=== PATIENT | female | born 1945 | race Caucasian/White ===

== ENCOUNTER 2022-07-07 13:26 | Inpatient (IN) ==
[2022-07-07] MEDS ORDERED: Ondansetron ODT 4 MG TAB.RAPDIS SL PRN (15:47)
[2022-07-07] MEDS ORDERED: Naloxone 0.4 MG/ML INJ IVP PRN (15:47)
[2022-07-07] MEDS ORDERED: Piperacillin/Tazobactam 3.375 GM in 0.9 % Sodium Chloride Mini Bag 100 ML IVPB SCH (16:00)
[2022-07-07] MEDS ORDERED: D5% in Water 1,000 ML IVC PRN (17:04)
[2022-07-07] MEDS ORDERED: Dextrose Gel 15 GM/37.5 ML TUBE PO PRN ×2 (17:04)
[2022-07-07] MEDS: lisinopriL 5 MG TABLET PO SCH (17:31)
[2022-07-07] MEDS: Metoprolol XL (24 HR) Succ 25 MG TAB.ER.24H PO SCH (17:31)
[2022-07-07 17:49] LABS: Magnesium 1.9 mg/dL (1.6-2.6); Phosphorous 3.5 mg/dL (2.7-4.5)
[2022-07-07 17:55] LABS: Procalcitonin 0.65 ng/mL (0.00-0.15)
[2022-07-07] MEDS: *HR* Metoprolol 5 MG/5 ML VIAL IVP PRN (17:59)
[2022-07-07] MEDS ORDERED: *HR* Metoprolol 5 MG/5 ML VIAL IVP SCH (18:00)
[2022-07-07 18:04] LABS: Thyroid Stimulating Hormone 6.43 mcIU/mL (0.340-5.600)
[2022-07-07] MEDS: Ipratropium/Albuterol Neb 3 ML IH SCH ×3 (18:23→23:33)
[2022-07-07] MEDS: Insulin LISPRO 300 UNITS/3 ML VIAL SUBQ SCH (20:16)
[2022-07-07] MEDS ORDERED: *HR* Metoprolol 5 MG/5 ML VIAL IVP ONE (21:35)
[2022-07-07] MEDS: *HR* Heparin 5,000 UNIT/ML VIAL SQ SCH (21:46)
[2022-07-08] MEDS: Azithromycin 500 MG in 0.9 % Sodium Chloride 250 ML IVPB SCH (01:05)
[2022-07-08] MEDS: Ipratropium/Albuterol Neb 3 ML IH SCH ×6 (04:32→23:01)
[2022-07-08 04:47] LABS: Basophils # 0.1 K/mcL (0.0-0.2); Basophils % 0.5 %; Eosinophils # 0.1 K/mcL (0.0-0.6); Eosinophils % 0.3 %; Hematocrit 37.8 % (35.3-44.9); Hemoglobin 11.5 g/dL (11.5-15.4); Lymphocytes # 1.2 K/mcL (0.6-4.6); Lymphocytes % 7.5 %; Mean Corpuscular HGB Conc 30.4 g/dL (31.6-35.5); Mean Corpuscular Volume 105.3 fL (83.0-100.0); Mean Platelet Volume 10.1 fL (9.4-12.4); Monocytes # 1.3 K/mcL (0.0-1.3); Monocytes % 8.6 %; Neutrophils # 12.7 K/mcL (1.6-8.9); Platelet Count 245 K/mcL (140-400); Red Blood Count 3.59 M/mcL (3.82-4.97); Red Cell Distribution Width 12.4 % (11.5-14.5); Segmented Neutrophils % 82.1 %; White Blood Count 15.4 K/mcL (4.3-11.1)
[2022-07-08 05:12] LABS: Calcium 9.3 mg/dL (8.6-10.3); Magnesium 2.1 mg/dL (1.6-2.6); Phosphorous 4.6 mg/dL (2.7-4.5); Potassium 5.3 mEq/L (3.5-5.1)
[2022-07-08 05:28] LABS: Estimated Average Glucose 111 mg/dl; Hemoglobin A1C 5.5 %
[2022-07-08] MEDS: *HR* Heparin 5,000 UNIT/ML VIAL SQ SCH ×3 (05:37→21:24)
[2022-07-08] MEDS: Insulin LISPRO 300 UNITS/3 ML VIAL SUBQ SCH ×4 (08:24→20:15)
[2022-07-08] MEDS: lisinopriL 5 MG TABLET PO SCH (08:25)
[2022-07-08] MEDS: cefTRIAXone 2,000 MG in 0.9 % Sodium Chloride 20 ML IVPB SCH (08:25)
[2022-07-08] MEDS: Metoprolol XL (24 HR) Succ 25 MG TAB.ER.24H PO SCH (08:25)
[2022-07-08] MEDS ORDERED: cefTRIAXone 1,000 MG in 0.9 % Sodium Chloride 10 ML IVPB SCH (09:00)
[2022-07-08 22:26] LABS: Calcium 9.5 mg/dL (8.6-10.3); Phosphorous 3.7 mg/dL (2.7-4.5); Potassium 4.9 mEq/L (3.5-5.1)
[2022-07-08 22:29] LABS: Troponin I 0.06 ng/mL (< 0.04)
[2022-07-09] MEDS: Azithromycin 500 MG in 0.9 % Sodium Chloride 250 ML IVPB SCH (00:12)
[2022-07-09] MEDS: Melatonin 3 MG TABLET PO PRN ×2 (01:21→20:03)
[2022-07-09] MEDS: Ipratropium/Albuterol Neb 3 ML IH SCH ×6 (04:06→20:15)
[2022-07-09 04:20] LABS: Basophils # 0.1 K/mcL (0.0-0.2); Basophils % 0.7 %; Eosinophils % 0.2 %; Hematocrit 35.6 % (35.3-44.9); Hemoglobin 10.7 g/dL (11.5-15.4); Immature Granulocytes % 2.5 % (0-4); Lymphocytes # 0.8 K/mcL (0.6-4.6); Lymphocytes % 6.9 %; Mean Corpuscular HGB Conc 30.1 g/dL (31.6-35.5); Mean Corpuscular Hemoglobin 31.8 pg (28.0-33.3); Mean Corpuscular Volume 105.6 fL (83.0-100.0); Mean Platelet Volume 9.6 fL (9.4-12.4); Monocytes # 1.1 K/mcL (0.0-1.3); Monocytes % 8.8 %; Neutrophils # 9.9 K/mcL (1.6-8.9); Platelet Count 279 K/mcL (140-400); Red Blood Count 3.37 M/mcL (3.82-4.97); Red Cell Distribution Width 12.4 % (11.5-14.5); Segmented Neutrophils % 80.9 %; White Blood Count 12.2 K/mcL (4.3-11.1)
[2022-07-09 04:39] LABS: Calcium 9.3 mg/dL (8.6-10.3); Potassium 5.4 mEq/L (3.5-5.1)
[2022-07-09 04:49] LABS: Troponin I 0.09 ng/mL (< 0.04)
[2022-07-09] MEDS ORDERED: Calcium Gluconate 1gm/50mL 1 GM/50 ML BAG IVPB ONE (05:00)
[2022-07-09] MEDS ORDERED: *HR* Dextrose 50 % in Water (Syg) 50 ML SYRINGE IVP ONE (05:00)
[2022-07-09] MEDS ORDERED: Insulin Human Regular 10 UNIT in 0.9 % Sodium Chloride 10 ML IV ONE (05:00)
[2022-07-09] MEDS: *HR* Heparin 5,000 UNIT/ML VIAL SQ SCH ×3 (06:22→22:07)
[2022-07-09] MEDS: Metoprolol XL (24 HR) Succ 25 MG TAB.ER.24H PO SCH ×2 (08:27→08:45)
[2022-07-09] MEDS: Insulin LISPRO 300 UNITS/3 ML VIAL SUBQ SCH ×4 (08:34→22:13)
[2022-07-09] MEDS: cefTRIAXone 2,000 MG in 0.9 % Sodium Chloride 20 ML IVPB SCH (08:36)
[2022-07-09 10:26] LABS: ABG Base Excess 4 mEq/L (-2 to 3); ABG HCO3 37 mEq/L (21-27); ABG Oxygen Saturation 88 % (95-98); ABG PCO2 110 mmHg (35-45); ABG PH 7.13 pH Units (7.32-7.45); ABG PO2 77 mmHg (85-104); ABG TCO2 40 mEq/L (20-26)
[2022-07-09] MEDS: *HR* Dextrose 50 % in Water (Syg) 50 ML SYRINGE IVP PRN (12:14)
[2022-07-09] MEDS: Venlafaxine XR (24 HR) 150 MG CAP.ER.24H PO SCH (12:19)
[2022-07-09] MEDS: Magnesium Oxide 400 MG TABLET PO SCH ×2 (12:19→20:03)
[2022-07-09] MEDS: Carbidopa/Levodopa ER 50/200 TABLET PO SCH ×3 (12:19→20:03)
[2022-07-09] MEDS: Cyanocobalamin (B-12) 1,000 MCG TABLET PO SCH (12:19)
[2022-07-09] MEDS ORDERED: Furosemide 40 MG in 0.9 % Sodium Chloride 50 ML IVP ONE (14:00)
[2022-07-09] MEDS ORDERED: Furosemide 40 MG/4 ML VIAL IVP ONE (14:06)
[2022-07-09 14:09] LABS: ABG Base Excess 6 mEq/L (-2 to 3); ABG HCO3 36 mEq/L (21-27); ABG Oxygen Saturation 94 % (95-98); ABG PCO2 84 mmHg (35-45); ABG PH 7.24 pH Units (7.32-7.45); ABG PO2 89 mmHg (85-104); ABG TCO2 38 mEq/L (20-26); Blood Gas VT 450 cc
[2022-07-09] MEDS ORDERED: *HR* Heparin 5,000 UNIT/ML VIAL ONE (14:30)
[2022-07-09] MEDS ORDERED: Furosemide 40 MG/4 ML VIAL ONE (14:38)
[2022-07-09] MEDS ORDERED: Erythromycin OPTH Oint LEFT EYE ONE (17:09)
[2022-07-09] MEDS: *HR* Metoprolol 5 MG/5 ML VIAL IVP PRN (18:24)
[2022-07-09] MEDS: Sennosides/Docusate Sodium TABLET PO SCH (20:04)
[2022-07-09] MEDS: MOM Conc 10 ML UD.LIQ PO SCH (20:04)
[2022-07-09] MEDS ORDERED: hydrOXYzine pamoate 25 MG CAPSULE PO SCH (22:00)
[2022-07-09] MEDS ORDERED: Albumin 25% 25gram/100mL 25 GM/100 ML IV.SOLN IVPB ONE (22:07)
[2022-07-09] MEDS: Levalbuterol Neb 1.25 MG/3 ML IH SCH (22:39)
[2022-07-10] MEDS: Azithromycin 500 MG in 0.9 % Sodium Chloride 250 ML IVPB SCH (01:52)
[2022-07-10 03:40] LABS: Basophils # 0.1 K/mcL (0.0-0.2); Basophils % 0.6 %; Eosinophils % 0.5 %; Hematocrit 32.5 % (35.3-44.9); Immature Granulocytes % 1.6 % (0-4); Lymphocytes % 11.4 %; Mean Corpuscular HGB Conc 30.8 g/dL (31.6-35.5); Mean Corpuscular Hemoglobin 32.4 pg (28.0-33.3); Mean Corpuscular Volume 105.2 fL (83.0-100.0); Mean Platelet Volume 9.5 fL (9.4-12.4); Monocytes # 0.6 K/mcL (0.0-1.3); Neutrophils # 6.7 K/mcL (1.6-8.9); Platelet Count 217 K/mcL (140-400); Red Blood Count 3.09 M/mcL (3.82-4.97); Red Cell Distribution Width 12.4 % (11.5-14.5); Segmented Neutrophils % 78.9 %; White Blood Count 8.5 K/mcL (4.3-11.1)
[2022-07-10] MEDS: Levalbuterol Neb 1.25 MG/3 ML IH SCH ×4 (03:51→22:52)
[2022-07-10 03:59] LABS: Calcium 9.4 mg/dL (8.6-10.3); Potassium 4.5 mEq/L (3.5-5.1)
[2022-07-10 04:00] LABS: Calcium 9.5 mg/dL (8.6-10.3); Potassium 4.6 mEq/L (3.5-5.1)
[2022-07-10 04:20] LABS: ABG Base Excess 8 mEq/L (-2 to 3); ABG HCO3 35 mEq/L (21-27); ABG Oxygen Saturation 97 % (95-98); ABG PCO2 67 mmHg (35-45); ABG PH 7.33 pH Units (7.32-7.45); ABG PO2 103 mmHg (85-104); ABG TCO2 37 mEq/L (20-26); Blood Gas VT 450 cc
[2022-07-10] MEDS: *HR* Heparin 5,000 UNIT/ML VIAL SQ SCH ×3 (05:19→20:48)
[2022-07-10] MEDS: *HR* Metoprolol 5 MG/5 ML VIAL IVP PRN ×2 (05:19→11:40)
[2022-07-10] MEDS: Insulin LISPRO 300 UNITS/3 ML VIAL SUBQ SCH ×4 (07:57→21:10)
[2022-07-10] MEDS: cefTRIAXone 2,000 MG in 0.9 % Sodium Chloride 20 ML IVPB SCH (08:09)
[2022-07-10] MEDS: Magnesium Oxide 400 MG TABLET PO SCH ×2 (08:10→20:48)
[2022-07-10] MEDS: Carbidopa/Levodopa ER 50/200 TABLET PO SCH ×3 (08:10→20:48)
[2022-07-10] MEDS: Venlafaxine XR (24 HR) 150 MG CAP.ER.24H PO SCH (08:10)
[2022-07-10] MEDS: Metoprolol XL (24 HR) Succ 25 MG TAB.ER.24H PO SCH (08:10)
[2022-07-10] MEDS: Sennosides/Docusate Sodium TABLET PO SCH ×2 (08:10→20:48)
[2022-07-10] MEDS: MOM Conc 10 ML UD.LIQ PO SCH (08:10)
[2022-07-10] MEDS: Cyanocobalamin (B-12) 1,000 MCG TABLET PO SCH (08:10)
[2022-07-10] MEDS: Piperacillin/Tazobactam 3.375 GM in 0.9 % Sodium Chloride Mini Bag 100 ML IVPB SCH (14:42)
[2022-07-10] MEDS: hydrOXYzine pamoate 25 MG CAPSULE PO SCH ×2 (15:13→20:48)
[2022-07-10 16:59] LABS: ABG Base Excess 8 mEq/L (-2 to 3); ABG HCO3 36 mEq/L (21-27); ABG Oxygen Saturation 95 % (95-98); ABG PCO2 69 mmHg (35-45); ABG PH 7.32 pH Units (7.32-7.45); ABG PO2 86 mmHg (85-104); ABG TCO2 38 mEq/L (20-26); Blood Gas Modality NIV; Blood Gas VT 450 cc
[2022-07-10] MEDS: DilTIAZem 50 MG/50 ML IV.SOLN IVC SCH ×2 (18:30→21:32)
[2022-07-10] MEDS: Melatonin 3 MG TABLET PO PRN (20:48)
[2022-07-11] MEDS: *HR* Metoprolol 5 MG/5 ML VIAL IVP PRN (00:46)
[2022-07-11] MEDS: Piperacillin/Tazobactam 3.375 GM in 0.9 % Sodium Chloride Mini Bag 100 ML IVPB SCH ×3 (00:49→15:47)
[2022-07-11] MEDS: DilTIAZem 50 MG/50 ML IV.SOLN IVC SCH ×5 (00:51→21:29)
[2022-07-11] MEDS: Azithromycin 500 MG in 0.9 % Sodium Chloride 250 ML IVPB SCH (01:41)
[2022-07-11] MEDS: Levalbuterol Neb 1.25 MG/3 ML IH SCH ×4 (04:41→22:38)
[2022-07-11 05:11] LABS: Basophils # 0.1 K/mcL (0.0-0.2); Basophils % 0.6 %; Eosinophils # 0.3 K/mcL (0.0-0.6); Eosinophils % 3.1 %; Hematocrit 34.2 % (35.3-44.9); Hemoglobin 10.2 g/dL (11.5-15.4); Immature Granulocytes % 1.7 % (0-4); Lymphocytes % 12.3 %; Mean Corpuscular HGB Conc 29.8 g/dL (31.6-35.5); Mean Corpuscular Hemoglobin 31.6 pg (28.0-33.3); Mean Corpuscular Volume 105.9 fL (83.0-100.0); Mean Platelet Volume 9.6 fL (9.4-12.4); Monocytes # 0.7 K/mcL (0.0-1.3); Platelet Count 241 K/mcL (140-400); Red Blood Count 3.23 M/mcL (3.82-4.97); Red Cell Distribution Width 12.2 % (11.5-14.5); Segmented Neutrophils % 73.3 %; White Blood Count 8.1 K/mcL (4.3-11.1)
[2022-07-11 05:25] LABS: Calcium 9.4 mg/dL (8.6-10.3); Potassium 4.3 mEq/L (3.5-5.1)
[2022-07-11] MEDS: *HR* Heparin 5,000 UNIT/ML VIAL SQ SCH ×3 (05:29→21:10)
[2022-07-11] MEDS: hydrOXYzine pamoate 25 MG CAPSULE PO SCH ×3 (07:49→21:10)
[2022-07-11] MEDS: Cyanocobalamin (B-12) 1,000 MCG TABLET PO SCH (07:50)
[2022-07-11] MEDS: Magnesium Oxide 400 MG TABLET PO SCH ×2 (07:50→21:09)
[2022-07-11] MEDS: lisinopriL 5 MG TABLET PO SCH (07:50)
[2022-07-11] MEDS: Metoprolol XL (24 HR) Succ 25 MG TAB.ER.24H PO SCH (07:50)
[2022-07-11] MEDS: Venlafaxine XR (24 HR) 150 MG CAP.ER.24H PO SCH (07:50)
[2022-07-11] MEDS: Carbidopa/Levodopa ER 50/200 TABLET PO SCH ×3 (07:51→21:09)
[2022-07-11] MEDS: Insulin LISPRO 300 UNITS/3 ML VIAL SUBQ SCH ×4 (07:52→22:30)
[2022-07-11] MEDS: Sennosides/Docusate Sodium TABLET PO SCH ×2 (07:52→21:09)
[2022-07-11] MEDS: MOM Conc 10 ML UD.LIQ PO SCH (07:52)
[2022-07-12] MEDS: Piperacillin/Tazobactam 3.375 GM in 0.9 % Sodium Chloride Mini Bag 100 ML IVPB SCH ×3 (00:36→14:33)
[2022-07-12] MEDS: DilTIAZem 50 MG/50 ML IV.SOLN IVC SCH ×3 (01:26→10:36)
[2022-07-12] MEDS: Levalbuterol Neb 1.25 MG/3 ML IH SCH ×4 (04:17→22:48)
[2022-07-12] MEDS: *HR* Heparin 5,000 UNIT/ML VIAL SQ SCH ×3 (06:07→20:19)
[2022-07-12 06:11] LABS: Calcium 9.5 mg/dL (8.6-10.3); Potassium 4.6 mEq/L (3.5-5.1)
[2022-07-12] MEDS: Carbidopa/Levodopa ER 50/200 TABLET PO SCH ×3 (07:38→20:19)
[2022-07-12] MEDS: lisinopriL 5 MG TABLET PO SCH (07:38)
[2022-07-12] MEDS: *HR* Metoprolol 5 MG/5 ML VIAL IVP PRN (07:38)
[2022-07-12] MEDS: Metoprolol XL (24 HR) Succ 25 MG TAB.ER.24H PO SCH (07:38)
[2022-07-12] MEDS: Cyanocobalamin (B-12) 1,000 MCG TABLET PO SCH (07:39)
[2022-07-12] MEDS: Magnesium Oxide 400 MG TABLET PO SCH ×2 (07:39→20:20)
[2022-07-12] MEDS: Sennosides/Docusate Sodium TABLET PO SCH ×2 (07:39→20:19)
[2022-07-12] MEDS: hydrOXYzine pamoate 25 MG CAPSULE PO SCH ×3 (07:39→20:19)
[2022-07-12] MEDS: MOM Conc 10 ML UD.LIQ PO SCH (07:40)
[2022-07-12] MEDS: Venlafaxine XR (24 HR) 150 MG CAP.ER.24H PO SCH (07:40)
[2022-07-12] MEDS: Insulin LISPRO 300 UNITS/3 ML VIAL SUBQ SCH ×4 (07:52→20:19)
[2022-07-12] MEDS: Azithromycin 250 MG TABLET PO SCH (07:52)
[2022-07-12 09:24] LABS: Basophils # 0.1 K/mcL (0.0-0.2); Basophils % 0.6 %; Eosinophils # 0.3 K/mcL (0.0-0.6); Eosinophils % 3.2 %; Hematocrit 32.8 % (35.3-44.9); Hemoglobin 9.8 g/dL (11.5-15.4); Immature Granulocytes % 2.1 % (0-4); Lymphocytes # 1.1 K/mcL (0.6-4.6); Lymphocytes % 13.2 %; Mean Corpuscular HGB Conc 29.9 g/dL (31.6-35.5); Mean Corpuscular Hemoglobin 31.8 pg (28.0-33.3); Mean Corpuscular Volume 106.5 fL (83.0-100.0); Mean Platelet Volume 9.6 fL (9.4-12.4); Monocytes # 0.6 K/mcL (0.0-1.3); Monocytes % 6.9 %; Neutrophils # 6.2 K/mcL (1.6-8.9); Platelet Count 264 K/mcL (140-400); Red Blood Count 3.08 M/mcL (3.82-4.97); Red Cell Distribution Width 12.4 % (11.5-14.5); White Blood Count 8.4 K/mcL (4.3-11.1)
[2022-07-12] MEDS: Melatonin 3 MG TABLET PO PRN (20:20)
[2022-07-13] MEDS: Piperacillin/Tazobactam 3.375 GM in 0.9 % Sodium Chloride Mini Bag 100 ML IVPB SCH ×3 (00:09→16:08)
[2022-07-13 03:47] LABS: Basophils # 0.1 K/mcL (0.0-0.2); Basophils % 0.7 %; Eosinophils # 0.3 K/mcL (0.0-0.6); Eosinophils % 4.1 %; Hematocrit 31.2 % (35.3-44.9); Hemoglobin 9.3 g/dL (11.5-15.4); Immature Granulocytes % 2.5 % (0-4); Lymphocytes # 1.1 K/mcL (0.6-4.6); Mean Corpuscular HGB Conc 29.8 g/dL (31.6-35.5); Mean Corpuscular Hemoglobin 32.2 pg (28.0-33.3); Mean Platelet Volume 9.8 fL (9.4-12.4); Monocytes # 0.4 K/mcL (0.0-1.3); Monocytes % 6.5 %; Neutrophils # 4.7 K/mcL (1.6-8.9); Platelet Count 242 K/mcL (140-400); Red Blood Count 2.89 M/mcL (3.82-4.97); Red Cell Distribution Width 12.5 % (11.5-14.5); Segmented Neutrophils % 70.2 %; White Blood Count 6.8 K/mcL (4.3-11.1)
[2022-07-13 04:12] LABS: Calcium 9.2 mg/dL (8.6-10.3); Potassium 4.7 mEq/L (3.5-5.1)
[2022-07-13] MEDS: Levalbuterol Neb 1.25 MG/3 ML IH SCH ×4 (04:13→21:55)
[2022-07-13] MEDS: *HR* Heparin 5,000 UNIT/ML VIAL SQ SCH ×3 (05:43→20:42)
[2022-07-13] MEDS: Insulin LISPRO 300 UNITS/3 ML VIAL SUBQ SCH ×4 (08:07→21:00)
[2022-07-13] MEDS: DilTIAZem 50 MG/50 ML IV.SOLN IVC SCH (08:18)
[2022-07-13] MEDS: Azithromycin 250 MG TABLET PO SCH (08:19)
[2022-07-13] MEDS: Cyanocobalamin (B-12) 1,000 MCG TABLET PO SCH (08:20)
[2022-07-13] MEDS: Venlafaxine XR (24 HR) 150 MG CAP.ER.24H PO SCH (08:20)
[2022-07-13] MEDS: hydrOXYzine pamoate 25 MG CAPSULE PO SCH ×3 (08:20→20:42)
[2022-07-13] MEDS: lisinopriL 5 MG TABLET PO SCH (08:20)
[2022-07-13] MEDS: Metoprolol XL (24 HR) Succ 25 MG TAB.ER.24H PO SCH ×2 (08:20→20:42)
[2022-07-13] MEDS: *HR* Metoprolol 5 MG/5 ML VIAL IVP PRN ×2 (08:21→14:34)
[2022-07-13] MEDS: Magnesium Oxide 400 MG TABLET PO SCH ×2 (08:21→20:42)
[2022-07-13] MEDS: MOM Conc 10 ML UD.LIQ PO SCH (08:22)
[2022-07-13] MEDS: Carbidopa/Levodopa ER 50/200 TABLET PO SCH ×3 (08:22→20:42)
[2022-07-13] MEDS: Sennosides/Docusate Sodium TABLET PO SCH ×2 (08:22→21:01)
[2022-07-13] MEDS ORDERED: Acetaminophen IV 500 MG/50 ML BAG IVPB ONE (10:19)
[2022-07-13] MEDS: *HR* LORazepam Oral Conc 2 MG/ML PO PRN ×2 (13:18→23:36)
[2022-07-13] MEDS ORDERED: Vancomycin 1,250 MG/262.5 ML IV.SOLN IVPB SCH (15:00)
[2022-07-13] MEDS: Melatonin 3 MG TABLET PO PRN (20:42)
[2022-07-14] MEDS: Levalbuterol Neb 1.25 MG/3 ML IH SCH ×4 (03:46→21:58)
[2022-07-14] MEDS: Piperacillin/Tazobactam 3.375 GM in 0.9 % Sodium Chloride Mini Bag 100 ML IVPB SCH ×3 (04:12→21:34)
[2022-07-14] MEDS: *HR* Heparin 5,000 UNIT/ML VIAL SQ SCH ×3 (05:35→21:36)
[2022-07-14] MEDS: Cyanocobalamin (B-12) 1,000 MCG TABLET PO SCH (08:57)
[2022-07-14] MEDS: Insulin LISPRO 300 UNITS/3 ML VIAL SUBQ SCH ×3 (08:57→21:39)
[2022-07-14] MEDS: Venlafaxine XR (24 HR) 150 MG CAP.ER.24H PO SCH (08:57)
[2022-07-14] MEDS: Sennosides/Docusate Sodium TABLET PO SCH ×2 (08:57→21:37)
[2022-07-14] MEDS: hydrOXYzine pamoate 25 MG CAPSULE PO SCH ×3 (08:58→21:51)
[2022-07-14] MEDS: lisinopriL 5 MG TABLET PO SCH (08:58)
[2022-07-14] MEDS: Magnesium Oxide 400 MG TABLET PO SCH ×2 (08:58→21:37)
[2022-07-14] MEDS: Azithromycin 250 MG TABLET PO SCH (08:59)
[2022-07-14] MEDS: Metoprolol XL (24 HR) Succ 25 MG TAB.ER.24H PO SCH ×2 (09:00→21:37)
[2022-07-14 10:47] LABS: Basophils # 0.1 K/mcL (0.0-0.2); Basophils % 0.8 %; Eosinophils # 0.2 K/mcL (0.0-0.6); Eosinophils % 1.7 %; Hematocrit 35.9 % (35.3-44.9); Hemoglobin 10.6 g/dL (11.5-15.4); Immature Granulocytes % 1.8 % (0-4); Lymphocytes # 0.8 K/mcL (0.6-4.6); Lymphocytes % 8.4 %; Mean Corpuscular HGB Conc 29.5 g/dL (31.6-35.5); Mean Corpuscular Hemoglobin 32.1 pg (28.0-33.3); Mean Corpuscular Volume 108.8 fL (83.0-100.0); Mean Platelet Volume 9.4 fL (9.4-12.4); Monocytes # 0.5 K/mcL (0.0-1.3); Neutrophils # 7.5 K/mcL (1.6-8.9); Platelet Count 316 K/mcL (140-400); Red Cell Distribution Width 12.4 % (11.5-14.5); Segmented Neutrophils % 82.3 %; White Blood Count 9.1 K/mcL (4.3-11.1)
[2022-07-14 11:17] LABS: Calcium 9.8 mg/dL (8.6-10.3); Potassium 5.2 mEq/L (3.5-5.1)
[2022-07-14] MEDS ORDERED: Vancomycin 1,250 MG/262.5 ML IV.SOLN IVPB SCH (12:00)
[2022-07-14] MEDS: MOM Conc 10 ML UD.LIQ PO SCH (12:20)
[2022-07-14] MEDS: Carbidopa/Levodopa ER 50/200 TABLET PO SCH ×3 (12:47→21:51)
[2022-07-14] MEDS: Melatonin 3 MG TABLET PO PRN (21:37)
[2022-07-15] MEDS: Levalbuterol Neb 1.25 MG/3 ML IH SCH ×3 (04:41→16:21)
[2022-07-15] MEDS: Piperacillin/Tazobactam 3.375 GM in 0.9 % Sodium Chloride Mini Bag 100 ML IVPB SCH ×2 (05:11→12:46)
[2022-07-15] MEDS: *HR* Heparin 5,000 UNIT/ML VIAL SQ SCH ×2 (05:13→15:12)
[2022-07-15] MEDS: Insulin LISPRO 300 UNITS/3 ML VIAL SUBQ SCH ×4 (07:29→16:43)
[2022-07-15] MEDS: *HR* Dextrose 50 % in Water (Syg) 50 ML SYRINGE IVP PRN (07:50)
[2022-07-15] MEDS: Azithromycin 250 MG TABLET PO SCH (09:47)
[2022-07-15] MEDS: hydrOXYzine pamoate 25 MG CAPSULE PO SCH ×2 (09:47→15:12)
[2022-07-15] MEDS: Cyanocobalamin (B-12) 1,000 MCG TABLET PO SCH (09:47)
[2022-07-15] MEDS: Magnesium Oxide 400 MG TABLET PO SCH (09:47)
[2022-07-15] MEDS: Metoprolol XL (24 HR) Succ 25 MG TAB.ER.24H PO SCH (09:47)
[2022-07-15] MEDS: Sennosides/Docusate Sodium TABLET PO SCH (09:48)
[2022-07-15] MEDS: lisinopriL 5 MG TABLET PO SCH (09:48)
[2022-07-15] MEDS: Carbidopa/Levodopa ER 50/200 TABLET PO SCH ×2 (09:48→15:12)
[2022-07-15] MEDS: Venlafaxine XR (24 HR) 150 MG CAP.ER.24H PO SCH (09:48)
[2022-07-15] MEDS: MOM Conc 10 ML UD.LIQ PO SCH (10:17)
[2022-07-15 11:16] VITALS: O2SAT 100
[2022-07-15] MEDS: *HR* LORazepam Oral Conc 2 MG/ML PO PRN (11:57)
[2022-07-15 12:50] LABS: Influenza A PCR Negative (Negative); Influenza B PCR Negative (Negative); Resp. Syncytial Virus PCR Negative (Negative); SARS-CoV-2 by PCR (In House) Negative (Negative)
[2022-07-15 15:31] VITALS: PULSE 71; TEMP 98.6
[2022-07-15 16:29] VITALS: BP 114/70
== END 2022-07-15 18:45 | DRG 193 ==
LOC: 3NENU → SUATTDRO 07-08 14:47
PROVIDERS: ADMIT Internal Medicine; ATTEND Internal Medicine